=== PATIENT | female | born 1950 | race African-American/Black ===

== ENCOUNTER 2020-08-23 05:26 | Day surgery (SDC) | payer OTHER, BC ==
[2020-08-23 10:16] VITALS: TEMP 97.6; BMI 27.7
[2020-08-23 13:16] VITALS: BP 124/62; PULSE 62
== END 2020-08-23 13:00 | disposition home or self-care (01) ==
LOC: JASU-ENDO 05:26
PROVIDERS: ATTEND Internal Medicine Gastroenterology
PROC: 0DBH8ZX Excision of Cecum, Via Natural or Artificial Opening Endoscopic, Diagnostic (ICD-10-PCS; principal; 2020-08-23 10:45)
DX: Z12.11 Encounter for screening for malignant neoplasm of colon (principal); Z86.010 Personal history of colon polyps; K63.5 Polyp of colon; K63.89 Other specified diseases of intestine; K64.8 Other hemorrhoids
CPT/HCPCS: 88305-TC